=== PATIENT | female | born 1980 | race African-American/Black ===

== ENCOUNTER 2019-04-10 21:43 | Emergency (ER) | payer OTHER ==
[~2019-04-10] VITALS: Ht 154.9 cm; Wt 77.6 kg
--- NOTE | 2019-04-10 22:04 | NUR ---
Dr. Waterman at bedside for MSE.
[2019-04-10 22:23] LABS: BASOPHILS # (AUTO) 0.1 K/uL (0.0-8.0); EOSINOPHILS # (AUTO) 0.3 K/uL (0.0-0.7); MEAN CORPUSCULAR HGB CONC 32 g/dL (32.3-35.6)
[2019-04-10 22:25] LABS: EOSINOPHILS % (AUTO) 4.6 % (0.0-7.0); LYMPHOCYTES # (AUTO) 2.1 K/uL (20.0-40.0); LYMPHOCYTES % (AUTO) 29.5 % (20.5-51.5); MEAN CORPUSCULAR HEMOGLOBIN 17.9 uug (24.7-32.8); MEAN CORPUSCULAR VOLUME 56.9 fL (75.5-95.3); MONOCYTES # (AUTO) 0.6 K/uL (2.0-10.0); MONOCYTES % (AUTO) 8.2 % (0.0-11.0); NEUTROPHILS % (AUTO) 56.7 % (38.5-71.5); PLATELET COUNT (AUTO) 439 K/uL (179-408); RED BLOOD CELL COUNT(AUTO) 3.54 MIL/uL (3.63-4.92)
[2019-04-10 22:30] LABS: CARBON DIOXIDE 26 mmol/L (21-32); CHLORIDE 105 mmol/L (98-107); CREATININE 0.8 mg/dL (0.6-1.3); GLUCOSE 93 mg/dL (74-106); UREA NITROGEN, BLOOD 14 mg/dL (7-18)
[2019-04-10 22:33] LABS: HEMATOCRIT 20.1 % (31.2-41.9); HEMOGLOBIN 6.3 g/dL (10.9-14.3)
[2019-04-10 23:02] LABS: BAND % (MANUAL) 1 % (0-10); EOSINOPHILS % (MANUAL) 3 % (0-8); LYMPHOCYTES % (MANUAL) 33 % (20-40); MONOCYTES % (MANUAL) 9 % (2-10); NEUTROPHILS % (MANUAL) 54 % (42-75)
--- NOTE | 2019-04-10 23:13 | NUR ---
Dr. Waterman speaking with Dr. Ceballos.
--- NOTE | 2019-04-10 23:53 | NUR ---
Received call from [facility] with Transfer information, spoke with January, Patient going to [facility], Room 304B, number to report , receiving nurse Rosie, receiving MD Dr. Castro. Ambulance ETA 1 hour ~0100.
--- NOTE | 2019-04-11 00:57 | NUR ---
Report given to Rosie MOISE [facility].
--- NOTE | 2019-04-11 01:35 | NUR ---
Kim arrived to ER for transport patient to [facility]. Report and documentation given to EMT.
--- NOTE | 2019-04-11 01:47 | NUR ---
Pt out of ER via [facility]. EMT has report and documentation.
== END 2019-04-11 01:49 | disposition short-term general hospital (02) ==
LOC: ER 21:43
DX: D64.9 Anemia, unspecified (principal); J45.909 Unspecified asthma, uncomplicated; Z91.013 Allergy to seafood; Z91.09 Other allergy status, other than to drugs and biological substances
CPT/HCPCS: 36415; 85025; A4663

== ENCOUNTER 2022-08-18 03:30 | Emergency (ER) | payer OTHER ==
[~2022-08-18] VITALS: Ht 154.9 cm; Wt 90.7 kg
[2022-08-18 04:10] LABS: *URINE HCG, QUAL NEGATIVE (NEGATIVE)
[2022-08-18 04:12] LABS: HEMATOCRIT 41.2 % (31.2-41.9); MEAN CORPUSCULAR HEMOGLOBIN 31.1 uug (24.7-32.8); MEAN CORPUSCULAR VOLUME 85.9 fL (75.5-95.3); PLATELET COUNT (AUTO) 291 K/uL (179-408)
[2022-08-18 04:31] LABS: ALANINE AMINOTRANSFERASE 23 U/L (14-59); ALKALINE PHOSPHATASE 65 U/L (50-136); ASPARTATE AMINOTRANSFERASE 20 U/L (15-37); BILIRUBIN,DIRECT 0.1 mg/dL (0.0-0.2); BILIRUBIN,TOTAL 0.7 mg/dL (0.2-1.0); CARBON DIOXIDE 27 mmol/L (21-32); CHLORIDE 98 mmol/L (98-107); GLUCOSE 104 mg/dL (74-106); POTASSIUM 3.8 mmol/L (3.5-5.1); TOTAL PROTEIN, SERUM 8.2 g/dL (6.4-8.2); UREA NITROGEN, BLOOD 14 mg/dL (7-18)
[2022-08-18] MEDS ORDERED: LORAZEPAM 0.5 MG TABLET PO ONE (04:45)
[2022-08-18] MEDS ORDERED: LORAZEPAM 0.5 MG TABLET ONE (05:07)
[2022-08-18] MEDS ORDERED: LORA-258 PO (05:50)
--- NOTE | 2022-08-18 06:05 | NUR ---
IV removed. Catheter intact and site benign. Pressure and 4x4 gauze applied to site. No bleeding noted.
[2022-08-18 06:07] VITALS: BP 128/75
--- NOTE | 2022-08-18 06:07 | NUR ---
Patient discharged to home in stable condition with taking patient home. Written and verbal after care instructions given. Patient verbalizes understanding of instructions. Stressed follow up or return to ER for worsening s/s.
== END 2022-08-18 06:08 | disposition home or self-care (01) ==
LOC: ER 03:36
DX: F41.0 Panic disorder [episodic paroxysmal anxiety] (principal); R94.31 Abnormal electrocardiogram [ECG] [EKG]; J45.909 Unspecified asthma, uncomplicated; Z91.013 Allergy to seafood; Z82.49 Family history of ischemic heart disease and other diseases of the circulatory system; D68.51 Activated protein C resistance
CPT/HCPCS: 36415; 84484; 84703; 85025; 85730; 93005; A4663